=== PATIENT | male | born 1985 | race African-American/Black ===

== ENCOUNTER 2018-04-12 22:35 | Emergency (ER) | payer SELFPAY ==
[~2018-04-12] VITALS: Ht 190.5 cm; Wt 100.0 kg
[2018-04-12 22:54] VITALS: BP 154/97
== END 2018-04-13 06:26 | disposition left against medical advice (07) ==
LOC: ER 23:02
DX: Z53.21 Procedure and treatment not carried out due to patient leaving prior to being seen by health care provider (principal)